=== PATIENT | male | born 1995 | race Caucasian/White ===

== ENCOUNTER 2018-06-01 15:04 | Emergency (ER) | payer SELFPAY ==
[~2018-06-01] VITALS: Ht 175.3 cm; Wt 72.0 kg
[2018-06-01 15:16] VITALS: BP 130/82; PULSE 65; RESP 16; Ht 175.3 cm; Wt 72.0 kg
[2018-06-01] MEDS ORDERED: IBUPROFEN 800 MG TAB PO ONE (16:30)
--- NOTE | 2018-06-01 19:19 | ERD ---
ER Documentation Chief Complaint Chief Complaint LEFT ELBOW PAIN & UNABLE TO STRAIGHTEN AFTER WORKING OUT HPI 23-year-old male presenting with pain to left elbow. Patient states that yeste rday he was playing basketball and lifted weights. He has pain straightening his left arm. He denies any numbness and tingling and denies any pain into the fingertips. Denies any numbness. He is never had this pain before. Denies medical problems. NKDA. Surgical history denies. Social history smokes marijuana daily. ROS All systems reviewed and are negative except as per history of present illness. Allergies Allergies: Coded Allergies: No Known Drug Allergies (Verified Allergy, Unknown, 06/01/18) PMhx/Soc Medical and Surgical Hx: pt denies Medical Hx, pt denies Surgical Hx FmHx Family History: No diabetes, No coronary disease, No other Physical Exam Vitals Vital Signs Date Temp Pulse Resp B/P (MAP) Pulse Ox O2 O2 Flow FiO2 Time Delivery Rate 06/01/18 98.0 65 16 130/82 99 15:16 (98) Physical Exam GENERAL: The patient is well-appearing, well-nourished, in no acute distress CHEST: Clear to auscultation bilaterally. There are no rales, wheezes or rhonchi. HEART: Regular rate and rhythm. No murmurs, clicks, rubs or gallops. No S3 or S4. EXTREMITIES: Tender to palpation over left lateral epicondyle. No obvious deformity or swelling. Pain with extension. NEUROLOGIC: Alert and oriented. Cranial nerves II through XII intact. Motor strength in all 4 extremities with 5 out of 5 strength. Sensation grossly intact. SKIN: There is no apparent rash or petechiae. The skin is warm and dry. Results 24 hrs Current Medications Medications Dose Sig/Cody Start Time Status Last (Trade) Ordered Route PRN Stop Time Admin Dose Reason Admin Ibuprofen 800 mg ONCE ONCE 06/01/18 DC 06/01/18 (Motrin) PO 16:30 16:19 06/01/18 16:31 Procedures/MDM ER course: I ordered a x-ray for patient however patient eloped from the ER. Patient was unable to be contacted. Patient did not complete course of ER visit. ELLEN MORRISSEY PA-C Jun 01, 2018 19:19
== END 2018-06-01 16:32 | disposition left against medical advice (07) ==
LOC: FTE 15:04
DX: M25.522 Pain in left elbow (principal)
CPT/HCPCS: 99282

== ENCOUNTER 2018-07-11 11:32 | Emergency (ER) | payer BC ==
[~2018-07-11] VITALS: Ht 177.8 cm; Wt 71.5 kg
[2018-07-11 11:38] VITALS: BP 148/66; PULSE 63; RESP 18; Ht 177.8 cm; Wt 71.5 kg
--- NOTE | 2018-07-11 12:44 | ERD ---
ER Documentation Chief Complaint Chief Complaint sores in mouth, denies n/v/d HPI 23-year-old male patient with no significant past medical history reports that he feels like he has a sore in his mouth. States that when he wakes up there is a clear discharge he notices. States that it does not drool. Denies any fever, dysuria, urgency, frequency, hematuria, increased thirst, chills, nausea, vomiting, diarrhea, neck stiffness, shortness of breath, abdominal pain, chest pain. Denies any suicidal ideations, homicidal ideations. Reports that he has been more stressed than usual. Ports that he does have a good support system. States that he just obtain blood work, few days ago with his PCP has a follow-up appointment with them soon. ROS All systems reviewed and are negative except as per history of present illness. Allergies Allergies: Coded Allergies: No Known Drug Allergies (Verified Allergy, Unknown, 06/01/18) FmHx Family History: diabetes (Grandpa); No coronary disease Physical Exam Vitals Vital Signs Date Temp Pulse Resp B/P (MAP) Pulse Ox O2 O2 Flow FiO2 Time Delivery Rate 07/11/18 98.3 63 18 148/66 100 11:38 (93) Physical Exam Const: [id number]-[id number], well-nourished. In no acute distress. Head: Atraumatic, normocephalic Eyes: Normal Conjunctiva without injection. No purulent discharge. PERRLA. EOMI ENT: Normal external ear. Ear canal without erythema. Tympanic membrane pearly siu without effusion or bulging. Nasal canal clear with normal turbinates. Moist oropharynx without tonsillar exudates. Non-erythematous pharynx. Uvula midline. No drooling. No trismus. No ulcerated lesions or vesicular lesions noted of the mouth. Neck: No cervical midline tenderness. Full range of motion. No meningismus. No cervical lymphadenopathy. No JVD. Resp: Clear to auscultation bilaterally. No wheezing, rhonchi, rales, or crackles. No accessory muscle use. No retractions. Cardio: Regular rate and rhythm. No murmurs, rubs or gallops. Abd: Soft, non tender, non distended. Normal bowel sounds. No palpable masses. No rebound tenderness. No guarding. Negative McBurney's Point. Negative Le's Sign. Skin: Normal skin turgor. No petechiae or rashes Back: No midline tenderness. No CVA tenderness. Ext: No cyanosis, or edema. Distal pulses intact bilaterally. Neur: Awake and alert. Normal gait. Normal coordination. Cranial Nerves II- VII intact. Normal finger to nose. Muscle strength 5/5. Sensation intact. Psych: Normal Mood and Affect Procedures/MDM 23-year-old male patient with no significant past medical history presents to ED complaining of a possible mouth sore. Patient is afebrile and nontoxic- appearing. Patient's physical exam include lungs which were clear to auscultation and a normal pulse oximetry. Bilateral ears pearly greenwood. No tenderness to palpation of tragus or mastoid. Low suspicion for mastoiditis, otitis externa, otitis media. Patient is speaking in full sentences. There is a low suspicion for pneumonia, epiglottitis, croup, sinusitis, peritonsillar abscess, hands foot mouth disease, scarlet fever, Kawasaki disease, Nick's angina, retropharyngeal abscess, meningitis, sepsis, acute abdomen or other emergent conditions. No suicidal or homicidal ideations. Patient reports he has been more stressed than usual, therefore stress relief tips were given to patient. Diagnosis: Wellness Examination Follow up with primary care physician in 1-2 days. Instructed patient to return to the ED sooner for any worsening symptoms. Patient's questions were answered. Patient is hemodynamically stable. Patient understood and agreed with discharge plan. Patient discharged stable. Disclaimer: Inadvertent spelling and grammatical errors are likely due to EHR/dictation software use and do not reflect on the overall quality of patient care. Also, please note that the electronic time recorded on this note does not necessarily reflect the actual time of the patient encounter. Departure Diagnosis: Primary Impression: Wellness examination Condition: Stable Patient Instructions: Stress Relief: Activities, Stress Relief: Relaxation, Stress Relief: A Positive Lifestyle, Stress Relief: Changing Your Response Referrals: COMMUNITY CLINICS YOU HAVE RECEIVED A MEDICAL SCREENING EXAM AND THE RESULTS INDICATE THAT YOU DO NOT HAVE A CONDITION THAT REQUIRES URGENT TREATMENT IN THE EMERGENCY DEPARTMENT. FURTHER EVALUATION AND TREATMENT OF YOUR CONDITION CAN WAIT UNTIL YOU ARE SEEN IN YOUR DOCTORS OFFICE WITHIN THE NEXT 1-2 DAYS. IT IS YOUR RESPONSIBILITY TO MAKE AN APPOINTMENT FOR FOLOW-UP CARE. IF YOU HAVE A PRIMARY DOCTOR --you should call your primary doctor and schedule an appointment IF YOU DO NOT HAVE A PRIMARY DOCTOR YOU CAN CALL OUR PHYSICIAN REFERRAL HOTLINE AT IF YOU CAN NOT AFFORD TO SEE A PHYSICIAN YOU CAN CHOSE FROM THE FOLLOWING [facility] [address] [facility] [address] [facility] [address] [facility] [address] [facility] [address] [facility]. [facility] [address] [facility] [address] [facility] YOU HAVE RECEIVED A MEDICAL SCREENING EXAM AND THE RESULTS INDICATE THAT YOU DO NOT HAVE A CONDITION THAT REQUIRES URGENT TREATMENT IN THE EMERGENCY DEPARTMENT. FURTHER EVALUATION AND TREATMENT OF YOUR CONDITION CAN WAIT UNTIL YOU ARE SEEN IN YOUR DOCTORS OFFICE WITHIN THE NEXT 1-2 DAYS. IT IS YOUR RESPONSIBILITY TO MAKE AN APPOINTMENT FOR FOLOW-UP CARE. IF YOU HAVE A PRIMARY DOCTOR --you should call your primary doctor and schedule and appointment IF YOU DO NOT HAVE A PRIMARY DOCTOR YOU CAN CALL OUR PHYSICIAN REFERRAL HOTLINE AT . IF YOU CAN NOT AFFORD TO SEE A PHYSICIAN YOU CAN CHOSE FROM THE FOLLOWING [facility]: [facility] [address] [place] [address] [facility] [address] [place] [address] [facility] [address] [place] [address] [facility] Additional Instructions: Call your primary care doctor TOMORROW for an appointment during the next 2-3 days for follow up of blood work.See the doctor sooner or return here if your condition worsens before your appointment time. EMELIA AVELAR PA-C Jul 11, 2018 12:44
== END 2018-07-11 13:04 | disposition home or self-care (01) ==
LOC: FTE 11:32
DX: Z00.00 Encounter for general adult medical examination without abnormal findings (principal)
CPT/HCPCS: 99282